=== PATIENT | male | born 1995 | race Caucasian/White ===

== ENCOUNTER 2020-03-15 04:37 | Emergency (ER) | payer OTHER, BC ==
[2020-03-15] MEDS ORDERED: LIDOCAINE 1%/EPINEPHRINE INJ 20 ML VIAL INJ ONE (05:25)
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
[2020-03-15 06:46] VITALS: BP 125/84
== END 2020-03-15 06:57 | disposition home or self-care (01) ==
LOC: ER 04:37
DX: S01.81XA Laceration without foreign body of other part of head, initial encounter (principal); S60.512A Abrasion of left hand, initial encounter; W19.XXXA Unspecified fall, initial encounter; Y93.89 Activity, other specified; Z88.1 Allergy status to other antibiotic agents
CPT/HCPCS: 99282; 12013; J3490